=== PATIENT | male | born 1990 | race Caucasian/White ===

== ENCOUNTER 2018-02-01 08:27 | Emergency (ER) | END 2018-02-01 09:45 | disposition home or self-care (01) ==

== ENCOUNTER 2018-07-07 13:21 | Emergency (ER) | END 2018-07-07 16:55 | disposition home or self-care (01) ==

== ENCOUNTER 2019-02-27 03:48 | Emergency (ER) | payer MEDICAID ==
[~2019-02-27] VITALS: Ht 165.1 cm; Wt 74.8 kg
[~2019-02-27 03:48] MED LIST: ACET500T98 PO; ALBU18HF INHALATION; AMOX500C2 PO; BEN25 PO; DOXY100T20 PO; IBUP-1542 PO; IBUP-1982 PO; NPH10OT RIGHT EAR; ONDA4TAB35 PO
[2019-02-27 03:51] VITALS: BP 139/84; PULSE 78; RESP 17; Ht 165.1 cm; Wt 74.8 kg
[2019-02-27] MEDS ORDERED: LIDOCAINE/MYLANTA 40 ML BTL PO STA (06:38)
[2019-02-27] MEDS ORDERED: ONDANSETRON (ODT) 4 MG TAB ODT STA (06:38)
[2019-02-27] MEDS ORDERED: BELLADONNA/PHENOBARBITAL TAB PO STA (06:38)
[2019-02-27] MEDS ORDERED: HYDROCODONE/APAP (5/325) TAB PO ONE (07:00)
[2019-02-27] MEDS ORDERED: ACET325T33 PO (07:43)
[2019-02-27] MEDS ORDERED: FAMO-96 PO (07:43)
--- NOTE | 2019-02-27 08:22 | ERD ---
ER Documentation Chief Complaint Chief Complaint C/O GENERALIZED AP X4 DAYS HPI 29-year-old male presenting with abdominal pain times 4 days. Patient describes an epigastric region. Has not taken medications. Denies any fevers. Denies chest pain or shortness of breath. Denies vomiting. States the pain is persistent. Denies any changes in urination or bowel movement. Denies medical problems. NKDA. Surgical history denies. Social history denies ROS All systems reviewed and are negative except as per history of present illness. Medications Home Meds Active Scripts Acetaminophen* (Tylenol*) 325 Mg Tablet, 2 TAB PO Q6 PRN for PAIN AND OR ELEVATED TEMP, #20 TAB Prov:CHENTE PORRAS PA-C 02/27/19 Famotidine* (Pepcid*) 20 Mg Tablet, 20 MG PO BID for 4 Days, #30 TAB Prov:CHENTE PORRAS PA-C 02/27/19 Diphenhydramine Hcl* (Benadryl*) 25 Mg Cap, 25 MG PO Q6, #10 CAP Prov:AKASH CAMEJO PA-C 07/07/18 Doxycycline Hyclate* (Doxycycline Hyclate*) 100 Mg Tablet.dr, 100 MG PO BID for 10 Days, TAB Prov:AKASH CAMEJO PA-C 07/07/18 Amoxicillin* (Amoxicillin*) 500 Mg Cap, 500 MG PO TID for 7 Days, CAP Prov:LARRY LYNN PA-C 02/01/18 Ibuprofen* (Motrin*) 600 Mg Tab, 600 MG PO Q6, #30 TAB Prov:LARRY LYNN PA-C 02/01/18 Neomycin/Polymyxin/Hydrocort* (Cortisporin* Otic) 10 Ml Susp, 4 DROP RIGHT EAR QID for 7 Days, EA Prov:LARRY LYNN PA-C 02/01/18 Ondansetron Hcl* (Zofran* ODT) 4 mg -ODT Tab.disper, 4 MG PO DAILY PRN for NAUSEA AND/OR VOMITING, #10 TAB 0 Refills Prov:JAIRO MADRIGAL PA-C 12/14/15 Ibuprofen* (Ibuprofen*) 200 Mg Capsule, 200 MG PO Q6, #30 CAP 0 Refills Prov:JAIRO MADRIGAL PA-C 12/14/15 Acetaminophen (Tylenol) 500 Mg Tab, 500 MG PO Q6, #30 TAB 0 Refills Prov:JAIRO MADRGIAL AYAZ 12/14/15 Albuterol Sulfate* (Ventolin HFA*) 18 Gm Hfa.aer.ad, 2 PUFF INHALATION Q6H, #1 INHALER 0 Refills Prov:JAIRO MADRIGAL JAKEStevoAl 12/14/15 Allergies Allergies: Coded Allergies: No Known Allergy (Unverified , 07/07/18) PMhx/Soc Medical and Surgical Hx: pt denies Medical Hx, pt denies Surgical Hx History of Surgery: No Anesthesia Reaction: No Hx Neurological Disorder: No Hx Respiratory Disorders: No Hx Cardiac Disorders: No Hx Psychiatric Problems: No Hx Miscellaneous Medical Probl: No Hx Alcohol Use: Yes (socially) Hx Substance Use: No Hx Tobacco Use: No Smoking Status: Never smoker FmHx Family History: No diabetes, No coronary disease, No other Physical Exam Vitals Vital Signs Date Temp Pulse Resp B/P (MAP) Pulse Ox O2 O2 Flow FiO2 Time Delivery Rate 02/27/19 97.6 78 17 139/84 99 03:51 (102) Physical Exam GENERAL: The patient is well-appearing, well-nourished, in no acute distress HEENT: Atraumatic. Conjunctivae are pink. Pupils equal, round, and reactive to light. There is no scleral icterus. Tympanic membranes clear bilaterally. Oropharynx clear. NECK: C-spine is soft and supple. There is no meningismus. There is no cervical lymphadenopathy. CHEST: Clear to auscultation bilaterally. There are no rales, wheezes or rhonchi. HEART: Regular rate and rhythm. No murmurs, clicks, rubs or gallops. ABDOMEN: Normal active bowel sounds. No distention. No organomegaly. Mild tenderness palpation in the epigastric region. Result Diagram: 02/27/1944 02/27/19643 Results 24 hrs Laboratory Tests Test 02/27/19 06:44 White Blood Count 9.5 10^3/ul Red Blood Count 5.28 10^6/ul Hemoglobin 15.1 g/dl Hematocrit 44.6 % Mean Corpuscular Volume 84.5 fl Mean Corpuscular Hemoglobin 28.6 pg Mean Corpuscular Hemoglobin Concent 33.9 g/dl Red Cell Distribution Width 12.5 % Platelet Count 300 10^3/UL Mean Platelet Volume 10.0 fl Immature Granulocytes % 0.200 % Neutrophils % 62.7 % Lymphocytes % 22.8 % Monocytes % 7.4 % Eosinophils % 6.3 % Basophils % 0.6 % Nucleated Red Blood Cells % 0.0 /100WBC Immature Granulocytes # 0.020 10^3/ul Neutrophils # 5.9 10^3/ul Lymphocytes # 2.2 10^3/ul Monocytes # 0.7 10^3/ul Eosinophils # 0.6 10^3/ul Basophils # 0.1 10^3/ul Nucleated Red Blood Cells # 0.0 10^3/ul Urine Color STRAW Urine Clarity CLEAR Urine pH 6.0 Urine Specific [place] 1.009 Urine Ketones NEGATIVE mg/dL Urine Nitrite NEGATIVE mg/dL Urine Bilirubin NEGATIVE mg/dL Urine Urobilinogen NEGATIVE mg/dL Urine Leukocyte Esterase NEGATIVE [place]/ul Urine Microscopic RBC 5 /HPF Urine Microscopic WBC 0 /HPF Urine Bacteria FEW /HPF Urine Hemoglobin 2+ mg/dL Urine Glucose NEGATIVE mg/dL Urine Total Protein NEGATIVE mg/dl Sodium Level 144 mmol/L Potassium Level 4.3 mmol/L Chloride Level 106 mmol/L Carbon Dioxide Level 29 mmol/L Anion Gap 9 Blood Urea Nitrogen 9 mg/dl Creatinine 0.67 mg/dl Est Glomerular Filtrat Rate mL/min > 60 mL/min Glucose Level 104 mg/dl Calcium Level 9.6 mg/dl Total Bilirubin 0.3 mg/dl Direct Bilirubin 0.00 mg/dl Indirect Bilirubin 0.3 mg/dl Aspartate Amino Transf (AST/SGOT) 39 IU/L Alanine Aminotransferase (ALT/SGPT) 48 IU/L Alkaline Phosphatase 102 IU/L Total Protein 8.4 g/dl Albumin 4.8 g/dl Globulin 3.60 g/dl Albumin/Globulin Ratio 1.33 Lipase 55 U/L Current Medications Medications Dose Sig/Bud Start Time Status Last (Trade) Ordered Route PRN Stop Time Admin Dose Reason Admin 40 ml ONCE STAT 02/27/19 DC 02/27/19 Miscellaneous PO 06:38 06:56 Medication 02/27/19 06:39 (Gi Cocktail (2)) Belladonna/ 2 tab ONCE STAT 02/27/19 DC 02/27/19 Phenobarbital PO 06:38 06:56 () 02/27/19 06:39 1 tab ONCE ONCE 02/27/19 DC 02/27/19 Acetaminophen PO 07:00 06:56 / 02/27/19 07:01 Hydrocodone Bitart ([place] (5/325)) Ondansetron 4 mg ONCE STAT 02/27/19 DC 02/27/19 HCl (Zofran ODT 06:38 06:56 Odt) 02/27/19 06:39 Procedures/MDM Patient: BARBARA WATERMAN : 1990 Age: 29 Sex: M MR #: [id number] DOS: 02/27/19 0638 Ordering MD: AURA PORRAS PA-C Location: [facility] Room/Bed: PROCEDURE: US Abdomen. CLINICAL INDICATION: Pain TECHNIQUE: Multiple real-time images were acquired of the patient's abdomen and retroperitoneum utilizing a high resolution transducer. COMPARISON: None FINDINGS: No evidence of cholelithiasis gallbladder wall thickening or pericholecystic fluid. Common bile duct normal limits in size maximal transverse diameter is 0 .358 centimeters. No intrahepatic biliary ductal dilation. Liver normal in size maximal sagittal mention 14.68 cm. Normal liver parenchymal echogenicity without focal lesions. Those portion the pancreas imaged are unremarkable. Normal portal venous flow. Right kidney normal in size maximal sagittal mention 11.01 cm. Normal right renal parenchymal echogenicity without hydronephrosis intra renal mass or calculus. IMPRESSION: 1. Unremarkable gallbladder without biliary ductal dilation. 2. Negative liver pancreas and right kidney. ER Course: GI cocktail given ED. MDM: 29-year-old male presenting with epigastric pain. I have low suspicion for choledocholithiasis, cholecystitis, cholangitis or pancreatitis. Patient's blood work and ultrasound are within normal limits. Patient is discharged with supportive medications. I have low suspicion for cardiac or pulmonary emergency. Patient is told symptoms change or worsen to return immediately to the ER. All questions answered at discharge Departure Diagnosis: Primary Impression: Epigastric pain Condition: Stable Patient Instructions: Epigastric Pain (Uncertain Cause) Referrals: COMMUNITY CLINICS YOU HAVE RECEIVED A MEDICAL SCREENING EXAM AND THE RESULTS INDICATE THAT YOU DO NOT HAVE A CONDITION THAT REQUIRES URGENT TREATMENT IN THE EMERGENCY DEPARTMENT. FURTHER EVALUATION AND TREATMENT OF YOUR CONDITION CAN WAIT UNTIL YOU ARE SEEN IN YOUR DOCTORS OFFICE WITHIN THE NEXT 1-2 DAYS. IT IS YOUR RESPONSIBILITY TO MAKE AN APPOINTMENT FOR FOLOW-UP CARE. IF YOU HAVE A PRIMARY DOCTOR --you should call your primary doctor and schedule an appointment IF YOU DO NOT HAVE A PRIMARY DOCTOR YOU CAN CALL OUR PHYSICIAN REFERRAL HOTLINE AT IF YOU CAN NOT AFFORD TO SEE A PHYSICIAN YOU CAN CHOSE FROM THE FOLLOWING FORMERLY [facility] [address] [facility] [address] [facility] [address] [facility] [address] [facility]. [facility] [address] [facility] [address] [facility]. [address] Additional Instructions: FOLLOW UP WITH YOUR PRIMARY CARE PHYSICIAN TOMORROW.Return to this facility if you are not improving as expected. CHENTE PORRAS PA-C Feb 27, 2019 08:22
== END 2019-02-27 08:05 | disposition home or self-care (01) ==
LOC: FTE 03:48
DX: R10.13 Epigastric pain (principal)
CPT/HCPCS: 36415; 76705; 80053; 81001; 83690; 85025; Z7502; Z7610

== ENCOUNTER 2019-07-21 12:51 | Emergency (ER) | payer MEDICAID ==
[~2019-07-21] VITALS: Ht 160 cm; Wt 70.0 kg
[~2019-07-21 12:51] MED LIST changes: +ACET325T33 PO; +FAMO-96 PO; +IBUP800T48 PO
[2019-07-21 13:20] VITALS: Ht 160 cm; Wt 70.0 kg
[2019-07-21] MEDS ORDERED: LIDOCAINE 1% (MPF) 5 ML VIAL INJ ONE (14:30)
[2019-07-21 15:44] VITALS: BP 125/69; PULSE 88; RESP 18
== END 2019-07-21 15:45 | disposition home or self-care (01) ==
LOC: FTE 12:51
DX: L60.0 Ingrowing nail (principal)
CPT/HCPCS: 11765; Z7502; Z7610